=== PATIENT | female | born 1950 | race Caucasian/White ===

== ENCOUNTER → 2016-12-30 | Outpatient (CLI) | payer MEDICARE, OTHER ==
[2016-12-31 08:11] LABS: ABSOLUTE BASOPHILS # (AUTO) 0.1 10^3/uL (0.0-0.2); ABSOLUTE EOSINOPHILS # (AUTO) 0.2 10^3/uL (0.0-0.6); ABSOLUTE MONOCYTES (AUTO) 0.3 10^3/uL (0.1-1.4); ABSOLUTE NEUT (AUTO) 2.1 10^3/uL (1.7-8.2); BASOPHILS % (AUTO) 2.6 % (0-2); EOSINOPHILS % (AUTO) 4.9 % (0-6); HEMATOCRIT 37.3 % (36.0-47.0); HEMOGLOBIN 12.5 g/dL (12.0-15.5); HGB HCT DIFFERENCE 0.2; LYMPHOCYTES % (AUTO) 28.1 % (13-45); MEAN CORPUSCULAR HEMOGLOBIN 28.9 pg (27.0-33.4); MEAN CORPUSCULAR HGB CONC 33.5 g/dL (32.0-36.0); MEAN CORPUSCULAR VOLUME 86 fl (80-97); MONOCYTES % (AUTO) 7.2 % (3-13); RED BLOOD COUNT 4.33 10^6/uL (3.72-5.28); RED CELL DISTRIBUTION WIDTH 14.5 % (11.5-14.0); SEGMENTED NEUTROPHILS % (AUTO) 57.2 % (42-78); WHITE BLOOD COUNT 3.7 10^3/uL (4.0-10.5)
[2016-12-31 08:35] LABS: ALANINE AMINOTRANSFERASE 22 U/L (9-52); ALBUMIN 4.4 g/dL (3.5-5.0); ALKALINE PHOSPHATASE 97 U/L (38-126); ANION GAP 10 (5-19); ASPARTATE AMINO TRANSFERASE 17 U/L (14-36); BILIRUBIN,DIRECT 0.3 mg/dL (0.0-0.4); BILIRUBIN,TOTAL 0.7 mg/dL (0.2-1.3); BLOOD UREA NITROGEN 13 mg/dL (7-20); CALCIUM 9.1 mg/dL (8.4-10.2); CARBON DIOXIDE 28 mmol/L (22-30); CHLORIDE 103 mmol/L (98-107); CHOLESTEROL 174.88 mg/dL (0-200); CREATININE RESULT 0.65 mg/dL (0.52-1.25); Direct HDL 44 mg/dL (>40); GLUCOSE 204 mg/dL (75-110); POTASSIUM 4.3 mmol/L (3.6-5.0); SODIUM 141.2 mmol/L (137-145); TOTAL PROTEIN 8.1 g/dL (6.3-8.2); TRIGLYCERIDES 258 mg/dL (<150)
[2016-12-31 08:59] LABS: DIRECT LDL 81 mg/dL (<100)
[2016-12-31 09:02] LABS: VLDL CHOLESTEROL 51.6 mg/dL (10-31)
== END ==
LOC: OD 09:46
PROVIDERS: ATTEND Internal Medicine
DX: G25.2 Other specified forms of tremor (principal); E11.9 Type 2 diabetes mellitus without complications; I10 Essential (primary) hypertension; E03.9 Hypothyroidism, unspecified; Z79.899 Other long term (current) drug therapy
CPT/HCPCS: 36415; 80053; 80061; 82043; 82306; 83036; 84443; 85025

== ENCOUNTER → 2017-04-05 | Outpatient (CLI) | payer MEDICARE, OTHER | LOC: OD 07:21 | PROVIDERS: ATTEND Family Medicine Geriatric Medicine | DX: E11.9 Type 2 diabetes mellitus without complications (principal); Z79.899 Other long term (current) drug therapy | CPT/HCPCS: 36415; 83036 ==

== ENCOUNTER → 2018-07-05 | Outpatient (CLI) | payer MEDICARE, OTHER ==
[2018-07-05 08:08] LABS: ABSOLUTE EOSINOPHILS # (AUTO) 1.7 10^3/uL (0.0-0.6); ABSOLUTE LYMPHOCYTES (AUTO) 1.3 10^3/uL (0.5-4.7); ABSOLUTE MONOCYTES (AUTO) 0.5 10^3/uL (0.1-1.4); ABSOLUTE NEUT (AUTO) 3.6 10^3/uL (1.7-8.2); BASOPHILS % (AUTO) 0.7 % (0-2); EOSINOPHILS % (AUTO) 24.2 % (0-6); HEMATOCRIT 39.2 % (36.0-47.0); HEMOGLOBIN 13.3 g/dL (12.0-15.5); MEAN CORPUSCULAR HEMOGLOBIN 28.7 pg (27.0-33.4); MEAN CORPUSCULAR VOLUME 85 fl (80-97); MONOCYTES % (AUTO) 6.3 % (3-13); PLATELET COUNT 179 10^3/uL (150-450); RED BLOOD COUNT 4.63 10^6/uL (3.72-5.28); RED CELL DISTRIBUTION WIDTH 13.4 % (11.5-14.0); SEGMENTED NEUTROPHILS % (AUTO) 50.8 % (42-78); TOTAL CELLS COUNTED % (AUTO) 100 %; WHITE BLOOD COUNT 7.1 10^3/uL (4.0-10.5)
[2018-07-05 08:22] LABS: ALANINE AMINOTRANSFERASE 23 U/L (9-52); ALBUMIN 4.1 g/dL (3.5-5.0); ALKALINE PHOSPHATASE 96 U/L (38-126); ANION GAP 10 (5-19); ASPARTATE AMINO TRANSFERASE 21 U/L (14-36); BILIRUBIN,DIRECT 0.2 mg/dL (0.0-0.4); BILIRUBIN,TOTAL 0.5 mg/dL (0.2-1.3); BLOOD UREA NITROGEN 22 mg/dL (7-20); CALCIUM 9.5 mg/dL (8.4-10.2); CARBON DIOXIDE 26 mmol/L (22-30); CHLORIDE 106 mmol/L (98-107); GLUCOSE 118 mg/dL (75-110); LIPASE 110.3 U/L (23-300); POTASSIUM 4.8 mmol/L (3.6-5.0); SODIUM 141.9 mmol/L (137-145); TOTAL PROTEIN 7.7 g/dL (6.3-8.2)
== END ==
LOC: OD 07:11
PROVIDERS: ATTEND Internal Medicine
DX: R10.9 Unspecified abdominal pain (principal); D64.9 Anemia, unspecified; E11.9 Type 2 diabetes mellitus without complications
CPT/HCPCS: 36415; 80053; 83036; 83690; 85025

== ENCOUNTER → 2018-11-06 | Outpatient (CLI) | payer MEDICARE, OTHER ==
[2018-11-06 08:28] LABS: ABSOLUTE BASOPHILS # (AUTO) 0.1 10^3/uL (0.0-0.2); ABSOLUTE EOSINOPHILS # (AUTO) 0.4 10^3/uL (0.0-0.6); ABSOLUTE LYMPHOCYTES (AUTO) 0.8 10^3/uL (0.5-4.7); ABSOLUTE MONOCYTES (AUTO) 0.2 10^3/uL (0.1-1.4); ABSOLUTE NEUT (AUTO) 2.2 10^3/uL (1.7-8.2); BASOPHILS % (AUTO) 2.3 % (0-2); EOSINOPHILS % (AUTO) 9.4 % (0-6); HEMOGLOBIN 12.5 g/dL (12.0-15.5); LYMPHOCYTES % (AUTO) 21.9 % (13-45); MEAN CORPUSCULAR HEMOGLOBIN 27.6 pg (27.0-33.4); MEAN CORPUSCULAR HGB CONC 33.8 g/dL (32.0-36.0); MEAN CORPUSCULAR VOLUME 82 fl (80-97); MONOCYTES % (AUTO) 6.5 % (3-13); PLATELET COUNT 125 10^3/uL (150-450); RED BLOOD COUNT 4.52 10^6/uL (3.72-5.28); RED CELL DISTRIBUTION WIDTH 14.2 % (11.5-14.0); SEGMENTED NEUTROPHILS % (AUTO) 59.9 % (42-78); TOTAL CELLS COUNTED % (AUTO) 100 %; WHITE BLOOD COUNT 3.7 10^3/uL (4.0-10.5)
[2018-11-06 09:03] LABS: ANION GAP 10 (5-19); BLOOD UREA NITROGEN 22 mg/dL (7-20); CALCIUM 9.3 mg/dL (8.4-10.2); CARBON DIOXIDE 27 mmol/L (22-30); CHLORIDE 107 mmol/L (98-107); CHOLESTEROL 119.58 mg/dL (0-200); GLUCOSE 163 mg/dL (75-110); SODIUM 144.1 mmol/L (137-145); TRIGLYCERIDES 188 mg/dL (<150)
[2018-11-06 09:17] LABS: DIRECT LDL 58 mg/dL (<100)
[2018-11-06 09:18] LABS: VLDL CHOLESTEROL 37.6 mg/dL (10-31)
== END ==
LOC: OD 07:22
PROVIDERS: ATTEND Internal Medicine
DX: E78.5 Hyperlipidemia, unspecified (principal); E55.9 Vitamin D deficiency, unspecified; N19 Unspecified kidney failure; D64.9 Anemia, unspecified
CPT/HCPCS: 36415; 80048; 80061; 82306; 85025

== ENCOUNTER → 2018-11-16 | Outpatient (CLI) | payer MEDICARE, OTHER ==
[2018-11-18 06:38] LABS: HEPATITIS A AB IGM Negative (Negative); HEPATITIS B CORE AB IGM Negative (Negative); HEPATITS B SURFACE ANTIGEN Negative (Negative)
[2018-11-19 19:10] LABS: CYTOMEGALOVIRUS IGG AB <0.60 U/mL (0.00-0.59); CYTOMEGALOVIRUS IGM AB <30.0 AU/mL (0.0-29.9); HEPATITIS C VIRUS ANTIBODY <0.1 s/co ratio (0.0-0.9)
[2018-11-19 19:11] LABS: EPSTEIN BARR EARLY AG IGG AB 23.5 U/mL (0.0-8.9); EPSTEIN BARR NUCLEAR AG IGG AB >600.0 U/mL (0.0-17.9); EPSTEIN BARR VCA IGG AB >600.0 U/mL (0.0-17.9); EPSTEIN BARR VCA IGM AB <36.0 U/mL (0.0-35.9)
== END ==
LOC: OD 10:25
PROVIDERS: ATTEND Internal Medicine
DX: K75.9 Inflammatory liver disease, unspecified (principal); E78.5 Hyperlipidemia, unspecified; E55.9 Vitamin D deficiency, unspecified; I10 Essential (primary) hypertension; R50.9 Fever, unspecified; F32.9 Major depressive disorder, single episode, unspecified; D75.89 Other specified diseases of blood and blood-forming organs; D61.818 Other pancytopenia
CPT/HCPCS: 36415; 80074; 82607; 82746; 86038; 86256; 86644; 86663; 86664; 86665; 86701; 88184; 88185

== ENCOUNTER → 2018-11-23 | Outpatient (CLI) | payer MEDICARE, OTHER ==
[2018-11-24 13:37] LABS: ANTICHROMATIN AB 0.2 AI (0.0-0.9); RA LATEX TURBIDITY <10.0 IU/mL (0.0-13.9); SJOGREN'S ANTI-SS-B AB <0.2 AI (0.0-0.9); SJOGREN'S SS-A ANTIBODY 1.2 AI (0.0-0.9)
[2018-11-24 16:07] LABS: DNA DOUBLE STRAND ANTIBODY ANA 1 IU/mL (0-9)
== END ==
LOC: OD 11:09
PROVIDERS: ATTEND Internal Medicine
DX: M32.9 Systemic lupus erythematosus, unspecified (principal)
CPT/HCPCS: 36415; 83520; 86225; 86235

== ENCOUNTER → 2019-05-15 | Outpatient (CLI) | payer MEDICARE, OTHER ==
[2019-05-15 12:31] LABS: HEMATOCRIT 38.3 % (36.0-47.0); MEAN CORPUSCULAR HEMOGLOBIN 27.7 pg (27.0-33.4); MEAN CORPUSCULAR HGB CONC 33.8 g/dL (32.0-36.0); MEAN CORPUSCULAR VOLUME 82 fl (80-97); PLATELET COUNT 163 10^3/uL (150-450); RED BLOOD COUNT 4.67 10^6/uL (3.72-5.28); RED CELL DISTRIBUTION WIDTH 14.5 % (11.5-14.0); WHITE BLOOD COUNT 3.8 10^3/uL (4.0-10.5)
[2019-05-15 12:57] LABS: ALBUMIN 4.4 g/dL (3.5-5.0); ALKALINE PHOSPHATASE 92 U/L (38-126); ANION GAP 13 (5-19); ASPARTATE AMINO TRANSFERASE 21 U/L (14-36); BILIRUBIN,DIRECT 0.2 mg/dL (0.0-0.4); BILIRUBIN,TOTAL 0.9 mg/dL (0.2-1.3); BLOOD UREA NITROGEN 23 mg/dL (7-20); CALCIUM 9.9 mg/dL (8.4-10.2); CARBON DIOXIDE 21 mmol/L (22-30); CHLORIDE 111 mmol/L (98-107); GLUCOSE 150 mg/dL (75-110); POTASSIUM 4.8 mmol/L (3.6-5.0); TOTAL PROTEIN 8.1 g/dL (6.3-8.2)
[2019-05-15 13:06] LABS: ABSOLUTE LYMPHOCYTES# (MANUAL) 1.1 10^3/uL (0.5-4.7); ABSOLUTE MONOCYTES # (MANUAL) 0.2 10^3/uL (0.1-1.4); BASOPHILS % (MANUAL) 0 % (0-2); EOSINOPHILS % (MANUAL) 12 % (0-6); LYMPHOCYTES % (MANUAL) 29 % (13-45); MONOCYTES % (MANUAL) 4 % (3-13); SEGMENTED NEUTROPHILS % (MAN) 55 % (42-78); TOTAL CELLS COUNTED 100
[2019-05-15 13:07] LABS: ANISOCYTOSIS SLIGHT; OVALOCYTES 1+; PLATELET COMMENT ADEQUATE; POIKILOCYTOSIS 1+; TEAR DROP CELLS SLIGHT
== END ==
LOC: OD 11:12
PROVIDERS: ATTEND Family Medicine
DX: E03.9 Hypothyroidism, unspecified (principal); R45.89 Other symptoms and signs involving emotional state
CPT/HCPCS: 36415; 80053; 84436; 84443; 84480; 85025

== ENCOUNTER → 2019-11-19 | Outpatient (CLI) | payer MEDICARE, OTHER ==
[2019-11-19 09:17] LABS: ALBUMIN 4.5 g/dL (3.5-5.0); ALKALINE PHOSPHATASE 98 U/L (38-126); ANION GAP 9 (5-19); ASPARTATE AMINO TRANSFERASE 19 U/L (14-36); BILIRUBIN,TOTAL 0.6 mg/dL (0.2-1.3); BLOOD UREA NITROGEN 31 mg/dL (7-20); CALCIUM 9.5 mg/dL (8.4-10.2); CARBON DIOXIDE 27 mmol/L (22-30); CHLORIDE 100 mmol/L (98-107); CHOLESTEROL 157.59 mg/dL (0-200); DIRECT LDL 83 mg/dL (<100); GLUCOSE 212 mg/dL (75-110); POTASSIUM 4.5 mmol/L (3.6-5.0); TOTAL PROTEIN 8.3 g/dL (6.3-8.2); TRIGLYCERIDES 262 mg/dL (<150)
[2019-11-19 09:18] LABS: VLDL CHOLESTEROL 52.4 mg/dL (10-31)
[2019-11-20 09:37] LABS: CREATININE URINE 45.7 mg/dL (Not Estab.); MICROALBUMIN URINE 26.8 ug/mL (Not Estab.)
== END ==
LOC: OD 07:13
PROVIDERS: ATTEND Family Medicine
DX: E11.9 Type 2 diabetes mellitus without complications (principal); E78.5 Hyperlipidemia, unspecified; E03.9 Hypothyroidism, unspecified
CPT/HCPCS: 36415; 80053; 80061; 82043; 82306; 82570; 83036; 84443

== ENCOUNTER → 2020-02-12 | Outpatient (CLI) | payer MEDICARE, OTHER ==
--- NOTE | 2020-02-12 13:37 | WOMENS IMAGING REPORT ---
EXAM DESCRIPTION: 3D SCREENING MAMMO BILAT IMAGES COMPLETED DATE/TIME: 02/12/2020 10:43 am REASON FOR STUDY: Z12.31 ENCNTR SCREEN MAMMOGRAM FOR MALIGNANT NEOPLASM OF BREAST Z12.31 ENCNTR SCR EEN MAMMOGRAM FOR MALIGNANT NEOPLASM OF [place] COMPARISON: None. EXAM PARAMETERS: Standard craniocaudal and mediolateral oblique views of each breast recorded using digital acquisition and breast tomosynthesis. Read with the assistance of CAD. .[facility] - R2 [employer] Operator Version 9.2 LIMITATIONS: None. FINDINGS: Findings present which are benign by mammographic criteria. No suspicious masses, calcific ations or architectural distortion. Pertinent benign findings: Benign calcifications. Benign mammographic findings may include one or more of the following: Smooth masses, popcorn/rim/coa rse calcifications, asymmetries, post-procedure changes, and lesions with long-standing stability. IMPRESSION: BENIGN MAMMOGRAPHIC FINDINGS. BIRADS 2 BREAST DENSITY: c. The breasts are heterogeneously dense, which may obscure small masses. BIRAD: ASSESSMENT: 2 BENIGN FINDING(S) RECOMMENDATION: ROUTINE SCREENING COMMENT: The patient has been notified of the results by letter per [place] requirements. Additional no tification policies are in place for contacting patient with suspicious or incomplete findings. Quality ID #[id number]: The [employer] recommends an annual screening mammogram for women aged 40 years or over. This facility utilizes a reminder system to ensure that all patients receive reminder letters, and/or direct phone calls for appointments. This includes reminders for routine scr eening mammograms, diagnostic mammograms, or other Breast Imaging Interventions when appropriate. Th is patient will be placed in the appropriate reminder system. TECHNICAL DOCUMENTATION: FINDING NUMBER: (1) ASSESSMENT: (1) JOB ID: [id number] 2010 [employer]- All Rights Reserved Reading location - IP/workstation name: [facility]-RR
== END ==
LOC: WI 09:38
PROVIDERS: ATTEND Family Medicine
DX: Z12.31 Encounter for screening mammogram for malignant neoplasm of breast (principal)
CPT/HCPCS: 77063; 77067

== ENCOUNTER → 2020-03-04 | Outpatient (CLI) | payer MEDICARE, OTHER ==
[2020-03-04 09:12] LABS: ANION GAP 10 (5-19); BLOOD UREA NITROGEN 32 mg/dL (7-20); CALCIUM 9.8 mg/dL (8.4-10.2); CARBON DIOXIDE 24 mmol/L (22-30); CHLORIDE 106 mmol/L (98-107); GLUCOSE 160 mg/dL (75-110); POTASSIUM 4.9 mmol/L (3.6-5.0)
[2020-03-05 10:37] LABS: CREATININE URINE 53.6 mg/dL (Not Estab.); MICROALBUMIN URINE 15.9 ug/mL (Not Estab.)
== END ==
LOC: OD 08:09
PROVIDERS: ATTEND Family Medicine
DX: E11.65 Type 2 diabetes mellitus with hyperglycemia (principal)
CPT/HCPCS: 36415; 80048; 82043; 82570; 83036

== ENCOUNTER → 2020-06-03 | Outpatient (CLI) | payer MEDICARE, OTHER ==
[2020-06-03 10:34] LABS: ALBUMIN 4.5 g/dL (3.5-5.0); ALKALINE PHOSPHATASE 93 U/L (38-126); ANION GAP 10 (5-19); ASPARTATE AMINO TRANSFERASE 23 U/L (14-36); BILIRUBIN,DIRECT 0.1 mg/dL (0.0-0.4); BILIRUBIN,TOTAL 0.8 mg/dL (0.2-1.3); BLOOD UREA NITROGEN 21 mg/dL (7-20); CALCIUM 9.4 mg/dL (8.4-10.2); CARBON DIOXIDE 26 mmol/L (22-30); CHLORIDE 105 mmol/L (98-107); CHOLESTEROL 124.29 mg/dL (0-200); GLUCOSE 154 mg/dL (75-110); POTASSIUM 5.1 mmol/L (3.6-5.0); TOTAL PROTEIN 8.2 g/dL (6.3-8.2); TRIGLYCERIDES 176 mg/dL (<150)
[2020-06-03 10:45] LABS: DIRECT LDL 45 mg/dL (<100)
[2020-06-03 10:52] LABS: VLDL CHOLESTEROL 35.2 mg/dL (10-31)
== END ==
LOC: OD 08:51
PROVIDERS: ATTEND Family Medicine
DX: E11.9 Type 2 diabetes mellitus without complications (principal); I10 Essential (primary) hypertension; E78.5 Hyperlipidemia, unspecified; E03.9 Hypothyroidism, unspecified; E55.9 Vitamin D deficiency, unspecified
CPT/HCPCS: 36415; 80053; 80061; 82306; 83036; 84443